=== PATIENT | female | born 1990 | race Asian ===

== ENCOUNTER 2019-08-29 00:26 | Inpatient (IN) ==
[2019-08-29] MEDS ORDERED: OXYTOCIN 30 UNITS/500 ML BAG IV PRN ×3 (05:17→13:13)
[2019-08-29] MEDS: LACTATED RINGER'S 1,000 ML IV PRN ×2 (05:45→06:47)
[2019-08-29 05:52] LABS: Hematocrit (blood only) 33.6 % (37-47); Hemoglobin 11.2 g/dL (12.0-16.0); Mean Corpuscular Hemoglobin 29.9 pg (25-34); Mean Corpuscular Volume 89.8 fL (80-100); Mean Platelet Volume 11.9 fL (7.4-10.4); Platelet Count 158 K/uL (130-400); RDW Standard Deviation 46.1 fL (36.4-46.3); Red Blood Count 3.74 M/uL (4.2-5.4); White Blood Count 8.41 K/uL (4.8-10.8)
[2019-08-29] MEDS ORDERED: ePHEDrine sulfate 50 MG/ML AMP ONE (05:54)
[2019-08-29] MEDS ORDERED: BUPIVACAINE 0.25% 30 ML VIAL ONE (05:54)
[2019-08-29] MEDS ORDERED: fentaNYL citrate 100 MCG/2 ML VIAL ONE (05:54)
[2019-08-29] MEDS ORDERED: fentaNYL 2MCG/ML ROPIV 1.25MG/ML 100 ML BAG EPI ONE (05:55)
[2019-08-29 05:57] LABS: Mean Corpuscular Hgb Conc 33.3 g/dL (32-36)
--- NOTE | 2019-08-29 05:59 | History & Physical Report ---
Date of Service August 29, 2019 Assessment & Plan (1) Normal labor: admit given cervical change. epidural per request. pit arom as indicated. anticipate . (2) 40 weeks gestation of : fetus category one. History of Present Illness Chief Complaint: contractions Primary Care Provider: NO PCP Dinorah is a 29yoaf with iup at 40 2/7 weeks, by 6 week us, who presents to labor and delivery with worsening contractions. WAs here early in the day on Thursday and 1cm without change. Returns early this am. No vb/lof. +fm. cx made change so was admitted for labor. has been uncomplicated. 22 week transfer from [place] labs--O+/ab-/ri/rprnr/hiv neg/ hep b neg/ gc/ct-/28 week gtt 166/ 2 hr nl/ gbs neg Allergies Allergy/AdvReac Type Severity Reaction Status Date / Time No Known Allergies Allergy Verified 08/29/19 00:46 Home Medications Home Medications Medication Instructions Recorded Confirmed Type vit no.[id number] 1 tab PO DAILY 08/29/19 08/29/19 History [ Vitamin] Patient History Social History (Updated 04/27/19 @ 13:42 by Vanessa Reyes) Preferred Language: [facility] Kiswahili Communication Ability: Effective Communication Tools: IPad and Language Line Clay Artist Clay Artist Required: Yes Beliefs That Will Affect Care: None marital status: marital status details: Chayo Gifford (29) Current Living Situation: Spouse Current Living Situation Comment: lives with mother ( travels back and forth from [place]) current occupational status: other current occupation: visiting scholar @ [employer] Other Information That Helps Us Care for You: No Feels Safe at Home: Yes Safety Concerns: Feels Safe At This Time Smoking Status: Never smoker Hx Alcohol Use: No Hx Substance Use: No Review of Systems as per Subjective / HPI Physical Exam Constitutional: WD/WN, vitals as above Gastrointestinal (Abdomen): soft, nt, gravid Psychiatric: A+Ox3, euthymic affect Genitourinary: cx--3/75/-2, bulging bag, cephalic toco--q2-4min efm--130s with mod variability, accels present, no decels Results & Data Vital Signs (Past 12 Hours) Vital Signs Temp Pulse Resp BP Pulse Ox 08/29/19 05:53 76 99 08/29/19 05:48 87 97 08/29/19 03:39 36.6 C 77 18 111/57 L 08/29/19 00:48 36.9 C 16 08/29/19 00:43 82 128/83 Coding Level of Care Code None Diagnoses Normal labor O80; Z37.9 40 weeks gestation of Z3A.40
[2019-08-29] MEDS ORDERED: DiphenhydrAMINE HCL 50 MG/ML VIAL IV PRN (06:31)
[2019-08-29] MEDS ORDERED: fentaNYL 2MCG/ML ROPIV 1.25MG/ML 100 ML BAG EPI PRN (06:31)
[2019-08-29] MEDS ORDERED: ONDANSETRON INJ 2 MG/ML 2 ML VIAL IV PRN (06:31)
[2019-08-29] MEDS ORDERED: ePHEDrine sulfate 50 MG/ML AMP IV PRN (06:31)
[2019-08-29] MEDS ORDERED: NALBUPHINE HCL INJ 10 MG/ML AMP IV PRN (06:31)
[2019-08-29] MEDS ORDERED: NALOXONE HCL 1 MG in SODIUM CHLORIDE 0.9% 1000ML 1,000 ML IV PRN (06:31)
[2019-08-29] MEDS ORDERED: NALOXONE HCL 0.4 MG/1 ML VIAL/CARP IV PRN (06:31)
--- NOTE | 2019-08-29 06:35 | Anesthesiology Consultation ---
Date of Service August 29, 2019 Assessment & Plan Chart Review Chart Review: Patient NOT seen in Pre Admission Testing and Acceptable Risk for Labor Epidural Consults Requested none ASA ASA2 Proposed Anesthesia Anesthesia Type: Labor Epidural and CSE Risk / Benefits Reviewed With: PT / POA / Parent / Guardian, Accepts Plan and Informed Consent Obtained History Height/Weight Height: 5 ft 5 in Weight: 69.4 kg Allergies Allergy/AdvReac Type Severity Reaction Status Date / Time No Known Allergies Allergy Verified 08/29/19 00:46 Medications Home Medications Medication Instructions Recorded Confirmed Last Taken vit no.[id number] 1 tab PO DAILY 08/29/19 08/29/19 08/28/19 [ Vitamin] Active Medications Generic Name Dose Route Start Last Admin Trade Name Freq PRN Reason Stop Dose Admin Lactated Ringer's 1,000 mls @ 125 mls/hr 08/29/19 05:17 08/29/19 05:45 Lr IV 08/31/19 05:16 999 mls/hr .Q8H PRN Administration L&D Protocol Protocol NPO Date Last Intake of Fluids: 08/29/19 Time Last Intake of Fluids: 06:00 Date Last Intake of Solids: 08/28/19 Time Last Intake of Solids: 20:00 Past Medical History Medical History Varicella vaccine Exercise / Class Metabolic Activity II 4-5 Yardwork/Stairs/Walk up hill Past Family History Family History Other No family history of disorders Past Surgical History Surgical History No pertinent past surgical history Past Anesthesia History No Hx of Anesthesia Complications and No Family Hx of Anesthesia Complications History of PONV No Hx of PONV and No Hx of Motion Sickness Social History Smoking Status: Never smoker Hx Alcohol Use: No Hx Substance Use: No Review of Systems no chest pain or sob Physical Exam Vital Signs Last Vital Signs Temp 36.6 C 08/29/19 03:39 Pulse 76 08/29/19 06:28 Resp 18 08/29/19 03:39 BP 111/57 L 08/29/19 03:39 Pulse Ox 99 08/29/19 06:28 ENMT Mouth: no TMJ abnormality Thyromental Distance: > or= 3.5 Finger Breadths Mallampati Class: II Neck normal visual inspection Respiratory normal respiratory effort Auscultation: lungs clear to auscultation bilaterally Cardiovascular Rate/Rhythm: regular rate and regular rhythm Musculoskeletal Spine: normal cervical ROM Neurologic moves all extremities Psychiatric Orientation: alert and oriented x 3 Testing Laboratory Results 08/29/19 05:34
--- NOTE | 2019-08-29 12:37 | Delivery Summary ---
Vaginal Delivery Summary Date of Service August 29, 2019 Vaginal Delivery Summary DIAGNOSES: 1. Wan intrauterine at 40w3d gestation. 2. Spontaneous onset of labor. 3. Group B Streptococcus Neg. PROCEDURE: Spontaneous vaginal delivery and repair of second degree laceration. SURGEON: Tanya Brand MD. SKETCHER: None. ESTIMATED BLOOD LOSS: 300 mL. COMPLICATIONS: None. PLACENTA: Spontaneous and intact with a 3-vessel cord. DISPOSITION: Stable to labor and delivery. DESCRIPTION: The patient pushed well and brought the head to in OA position. The infant's head was allowed to deliver with contraction force and no further active pushing, with the perineum protected during this time. A "turtle sign" was noted. A nuchal cord was reduced. The shoulders did not deliver with the next maternal pushing effort. Suprapubic pressure and Ton were utilized; the 's R shoulder was anterior and pressure was applied to its posterior aspect. The shouder did then deliver. The infant was placed on the maternal abdomen. The cord was quickly doubly clamped by the MD and then cut by the FOB. The infant went to the warmer where a logistics management specialist awaited, and resuscitation proceeded. The placenta delivered spontaneously and was noted to be intact and with a 3VC. The cervix, vagina and perineum were examined and were found to have a second degree laceration which was repaired with vicryl, taking special care not to disrupt the large tensely-dilated varicose veins that had been exposed in the perivaginal / perianal space. The fundus was firm and lochia minimal immediately after delivery.
[2019-08-29] MEDS ORDERED: SUPERCREAM 0.870% 15 GM JAR EXT PRN (13:13)
[2019-08-29] MEDS ORDERED: BENZOCAINE 20% AER SPR 82.5 GM CAN EXT PRN (13:13)
[2019-08-29] MEDS ORDERED: ACETAMINOPHEN 325 MG TAB PO PRN (13:13)
[2019-08-29] MEDS ORDERED: OXYCODONE/ACETAMINOPHEN 5mg/325mg TAB PO PRN (13:13)
[2019-08-29] MEDS ORDERED: HYDROCORTISONE ACETATE 25 MG SUPP PR PRN (13:13)
[2019-08-29] MEDS ORDERED: bisacodyL 10 MG SUPP PR PRN (13:13)
[2019-08-29] MEDS ORDERED: DIPHTHERIA/TETANUS/PERTUSSIS 0.5 ML SYR/VIAL IM ONE (13:13)
--- NOTE | 2019-08-29 14:44 | Anesthesia Procedure Note ---
Date of Service August 29, 2019 Anesthesia Post Epidural Note Vital Signs Vital Signs: Temp Pulse Resp BP Pulse Ox 36.8 C 108 H 18 114/57 L 95 08/29/19 11:50 08/29/19 14:39 08/29/19 14:00 08/29/19 14:39 08/29/19 13:03 Notes Mental Status: alert / awake / arousable and participated in evaluation Patient Amnestic to Procedure: Yes Nausea / Vomiting: adequately controlled Pain: adequately controlled Airway Patency, RR, SpO2: stable & adequate BP & HR: stable & adequate Hydration State: stable & adequate Anesthetic Complications: no major complications apparent and Pt Satisfied with anesthetic care
[2019-08-29] MEDS: IBUPROFEN 600 MG TAB PO PRN (20:24)
[2019-08-29] MEDS: DOCUSATE SODIUM 100 MG CAP PO SCH (20:24)
[2019-08-30 06:42] LABS: Hemoglobin 9.7 g/dL (12.0-16.0); Mean Corpuscular Hemoglobin 29.5 pg (25-34); Mean Corpuscular Hgb Conc 33.4 g/dL (32-36); Mean Corpuscular Volume 88.1 fL (80-100); Mean Platelet Volume 11.2 fL (7.4-10.4); Platelet Count 133 K/uL (130-400); RDW Coefficient of Variation 14.2 % (11.5-14.5); RDW Standard Deviation 45.6 fL (36.4-46.3); Red Blood Count 3.29 M/uL (4.2-5.4); White Blood Count 10.99 K/uL (4.8-10.8)
--- NOTE | 2019-08-30 06:57 | Obstetrical Progress Note ---
Date of Service <Hilario Tellez DO Last Filed: 08/30/19 06:57> August 30, 2019 Assessment & Plan <Hilario Tellez DO Last Filed: 08/30/19 06:57> (1) 40 weeks gestation of : -PPD#1 -Vitals reviewed, WNL (Tmax 36.8) - GBS -, Blood Type O+ - Clinically stable. - Feels well today. Eating well, voiding well, ambulating well. - Pain well controlled. - Routine post- care - After discharge will have [address] Cathie Kebede #:: 1 Subjective <Hilario Tellez DO Last Filed: 08/30/19 06:57> Ambulation: ambulating normally Voiding: no voiding problems Passing Gas:: Yes Diet Tolerance:: regular diet Lochia:: Moderate Feeding Type:: breast feeding Current Pain Level(1-10): 3 (improves with analgesics) Patient is a 29 PPD#1. Patient states that she is feeling well today and that her pain is well controlled. She has no other complaints at this time. Constitutional: no fever and no chills Respiratory: no cough, no dyspnea and no wheezing Cardiovascular: + edema; no chest pain, no dyspnea, no palpitations and no calf pain Breast: no breast pain Gastrointestinal: + cramping; no abdominal pain, no nausea and no vomiting Genitourinary (female): no dysuria and no difficulty urinating Neurologic: no headache(s) Physical Exam <DO Natalie Burkett Last Filed: 08/30/19 06:57> Constitutional WD/WN, vitals as above Respiratory normal respiratory effort, lungs clear to auscultation Cardiovascular Rate/Rhythm: regular rate and regular rhythm Heart Sounds: normal S1 and normal S2; no click, no gallop, no murmur and no cardiac rub Extremities: + edema; no calf tenderness Gastrointestinal (Abdomen) Inspection/Auscultation: abdomen normal to inspection and normal bowel sounds Percussion/Palpation: + abdomen tender (slight TTP in lower quadrants, appropriate) and abdomen soft Genitourinary OB Exam Abdomen: + fundal height Fundus: + firm and + relation to umbilicus (1cm below); not tender and not boggy Results & Data <Hilario JamesnDO Estrada Last Filed: 08/30/19 06:57> Vital Signs (Past 12 Hours) Vital Signs Temp Pulse Pulse Resp BP BP Pulse Ox 08/30/19 05:00 36.6 C 87 16 118/77 08/29/19 23:20 36.7 C 80 80 16 114/71 114/71 08/29/19 20:00 36.8 C 108 H 16 120/74 95 <Tanya Brand MD - Last Filed: 08/30/19 06:58> Co-Signing Physician Notes I have reviewed the resident's note and examined the patient myself, and agree with the note above. Resident Activity Tracking <Hilario Tellez DO - Last Filed: 08/30/19 06:57> Resident Involvement: Resident Care Provided Care Provided: OB Delivery
[2019-08-30] MEDS ORDERED: PRENATAL VITAMIN 1 TAB ONE (06:58)
[2019-08-30] MEDS: PRENATAL VITAMIN 1 TAB PO SCH (08:32)
[2019-08-30] MEDS: DOCUSATE SODIUM 100 MG CAP PO SCH ×2 (08:32→21:09)
[2019-08-30] MEDS: IBUPROFEN 600 MG TAB PO PRN ×2 (08:32→21:12)
[2019-08-30] MEDS ORDERED: bisacodyL 5 MG TABEC PO SCH (20:00)
--- NOTE | 2019-08-31 06:26 | Obstetrical Progress Note ---
Date of Service <Hilario JamesnDO - Last Filed: 08/31/19 06:26> August 31, 2019 Assessment & Plan <Hilario Tellez DO - Last Filed: 08/31/19 06:26> (1) 40 weeks gestation of : -PPD#2 -Vitals reviewed, WNL (Tmax 36.8) - GBS -, Blood Type O+ - Clinically stable. - Feels well today. Eating well, voiding well, ambulating well. - Pain well controlled. - Routine post- care - Counseled on discharge today. - After discharge will have [address] Cathie Kebede #:: 2 Subjective <Hilario JamesnDO - Last Filed: 08/31/19 06:26> Ambulation: ambulating normally Voiding: no voiding problems Passing Gas:: Yes Diet Tolerance:: regular diet Lochia:: Small Feeding Type:: breast feeding Current Pain Level(1-10): 3 (improves with analgesics) Patient is a 29 PPD#2. Patient states that she is feeling well today and that her pain is well controlled. She has no other complaints at this time. Constitutional: no fever and no chills Respiratory: no cough, no dyspnea and no wheezing Cardiovascular: + edema; no chest pain, no dyspnea, no palpitations and no calf pain Breast: no breast pain Gastrointestinal: no abdominal pain, no nausea and no vomiting Genitourinary (female): no dysuria and no difficulty urinating Neurologic: no headache(s) Physical Exam <DO Natalie Burkett Last Filed: 08/31/19 06:26> Constitutional WD/WN, vitals as above Respiratory normal respiratory effort, lungs clear to auscultation Cardiovascular Rate/Rhythm: regular rate and regular rhythm Heart Sounds: normal S1 and normal S2; no click, no gallop, no murmur and no cardiac rub Extremities: + edema; no calf tenderness Gastrointestinal (Abdomen) Inspection/Auscultation: abdomen normal to inspection and normal bowel sounds Percussion/Palpation: + abdomen tender (slight TTP in lower quadrants, appropriate) and abdomen soft Genitourinary OB Exam Abdomen: + fundal height Fundus: + firm and + relation to umbilicus (1cm below); not tender and not boggy Results & Data <Hilario Jamesmari DO - Last Filed: 08/31/19 06:26> Vital Signs (Past 12 Hours) Vital Signs Temp Pulse Resp BP Pulse Ox 08/30/19 23:30 36.6 C 81 18 113/69 96 <Justice Le MD - Last Filed: 08/31/19 07:51> Co-Signing Physician Notes Patient seen and evaluated and agree with the above findings and plan. Patient stable for discharge. Resident Activity Tracking <Hilario Tellez DO - Last Filed: 08/31/19 06:26> Resident Involvement: Resident Care Provided Care Provided: OB Delivery
[2019-08-31 06:37] LABS: Hemoglobin 10.2 g/dL (12.0-16.0)
[2019-08-31] MEDS: DOCUSATE SODIUM 100 MG CAP PO SCH (08:29)
[2019-08-31] MEDS: PRENATAL VITAMIN 1 TAB PO SCH (08:29)
== END 2019-08-31 16:51 | disposition home or self-care (01) | DRG 807 ==
LOC: OPB 00:26 → 4S1 00:29 → 4S2 15:00